=== PATIENT | female | born 1990 | race Caucasian/White ===

== ENCOUNTER → 2017-05-18 | Outpatient (CLI) | payer OTHER ==
--- NOTE | 2017-05-18 15:27 | US ---
EXAMINATION TYPE: US venous doppler duplex UE DATE OF EXAM: 05/18/2017 COMPARISON: NONE CLINICAL HISTORY: M79.622,M79.621 PAIN IN RT AND LT LIMB. Pain right arm. Heavy feeling bilateral arm s. History of DVT, patient on blood thinner. Patient recently found out she is , started new blood thinner SIDE PERFORMED: bilateral Grayscale, color doppler, spectral doppler imaging performed of the deep veins of the upper extremiti es. There is normal flow, compressability and vascular waveforms. Right Arm: NO evidence of DVT as visualized. Unable to visualize Cephalic vein Left Arm: No evidence of DVT as visualized IMPRESSION: No evidence for upper extremity DVT. See above.
== END | disposition home or self-care (01) ==
LOC: RADUSWWP 12:12
PROVIDERS: ATTEND Internal Medicine Hematology & Oncology
DX: M79.621 Pain in right upper arm (principal); M79.622 Pain in left upper arm; Z86.718 Personal history of other venous thrombosis and embolism
CPT/HCPCS: 93970

== ENCOUNTER 2017-12-20 06:30 | Inpatient (IN) | payer OTHER ==
[2017-12-20] MEDS ORDERED: DINOPROSTONE 10 MG INSERT.ER VAGINAL ONE (18:55)
[2017-12-20 19:01] VITALS: BMI 25.9
[2017-12-20] MEDS ORDERED: OXYTOCIN 10 UNIT/ML 1 ML VIAL IM PRN (19:11)
[2017-12-20] MEDS ORDERED: LIDOCAINE 1% (PF) 10 MG/ML (30 ML SDV) SQ PRN (19:11)
[2017-12-20] MEDS ORDERED: CARBOPROST TROMETHAMINE 250 MCG/ML 1 ML AMP IM PRN (19:11)
[2017-12-20] MEDS ORDERED: TERBUTALINE 1 MG/ML VIAL SQ PRN (19:11)
[2017-12-20] MEDS ORDERED: METHYLERGONOVINE 0.2 MG/ML 1 ML AMP IM PRN (19:11)
--- NOTE | 2017-12-20 19:22 | P.HPOB ---
History of Present Illness H&P Date: 12/20/17 Chief Complaint: IUP @ 390/7, prothrombin gene mutation This is 27yo at 39 0/7 weeks EDC of 12/27/17. she notes an occasional ctx, no LOF or VB bloodwork shows a bloodtype of Review of Systems Constitutional: Denies chills, Denies fatigue, Denies fever Respiratory: Denies dyspnea Gastrointestinal: Denies constipation, Denies diarrhea Genitourinary: Reports Past Medical History Past Medical History: No Reported History Additional Past Medical History / Comment(s): right hand deformity since , atopic dermatitis History of Any Multi-Drug Resistant Organisms: None Reported Additional Past Surgical History / Comment(s): hand surgery Additional Past Anesthesia/Blood Transfusion Reaction / Comment(s): clausterphobia Past Psychological History: Depression Additional Psychological History / Comment(s): dyslexia Smoking Status: Never smoker Past Alcohol Use History: None Reported Past Drug Use History: None Reported - Past Family History Father Family Medical History: Cancer, Hypertension Additional Family Medical History / Comment(s): colon ca Mother Family Medical History: Hypertension, Osteoarthritis (OA) Medications and Allergies Home Medications Medication Instructions Recorded Confirmed Type Enoxaparin [Lovenox] 40 mg SQ BID 12/20/17 12/20/17 History Folic Acid 1 mg PO DAILY 12/20/17 12/20/17 History Pnv No.95/Ferrous Fum/Folic AC 1 tab PO DAILY 12/20/17 12/20/17 History [ Multivitamin Tablet] Allergies Allergy/AdvReac Type Severity Reaction Status Date / Time clorine AdvReac Unknown Uncoded 12/20/17 18:52 detergent AdvReac Unknown Uncoded 12/20/17 18:52 Exam Osteopathic Statement: *. No significant issues noted on an osteopathic structural exam other than those noted in the History and Physical/Consult. - Vital Signs Vital signs: Vital Signs Temp Pulse Resp BP Pulse Ox 12/20/17 18:57 97.1 F L 119 H 16 116/77 100 Intake and Output 12/20/17 12/20/17 12/20/17 06:59 14:59 22:59 Other: Weight 60.328 kg - OBG Physical Exam Abdomen: gravid Cervix: /-3, BBOW, soft Uterus: enlarged Assessment and Plan (1) Term Current Visit: Yes Status: Acute Code(s): Z34.80 - ENCOUNTER FOR SUPRVSN OF NORMAL , UNSP TRIMESTER SNOMED Code(s): 76918917 (2) Prothrombin gene mutation Current Visit: Yes Status: Acute Code(s): D68.52 - PROTHROMBIN GENE MUTATION SNOMED Code(s): 24242597 Plan: admit to labor and delivery for cervidil induction secondary to the above. last lovenox 2230 last evening undecided about the epidural. will order stadol overnight Time with Patient: Less than 30
[2017-12-20] MEDS ORDERED: AMPICILLIN 2,000 MG in SODIUM CHLORIDE 0.9% 100 ML IVPB STA (19:24)
[2017-12-21] MEDS: OXYTOCIN 20 UNITS/1000 ML NS 1,000 ML IV SCH (06:00)
[2017-12-21] MEDS: LACTATED RINGERS 1,000 ML IV SCH ×4 (06:00→20:14)
[2017-12-21 06:14] LABS: Basophils # (A) 0.1 k/uL (0-0.2); Basophils % (A) 1 %; Eosinophils # (A) 0.3 k/uL (0-0.7); Eosinophils % (A) 2 %; HCT 28.7 % (34.0-46.0); HGB 9.1 gm/dL (11.4-16.0); Hypochromasia Marked; Lymphocytes # (A) 2.4 k/uL (1.0-4.8); Lymphocytes % (A) 21 %; MCH 22.3 pg (25.0-35.0); MCHC 31.8 g/dL (31.0-37.0); MCV 70.2 fL (80.0-100.0); Mean Platelet Volume 7.3; Microcytosis Moderate; Monocytes # (A) 0.4 k/uL (0-1.0); Monocytes % (A) 4 %; Neutrophils # (A) 8.4 k/uL (1.3-7.7); Neutrophils % (A) 71 %; Platelet Count 314 k/uL (150-450); Poikilocytosis Moderate; RBC 4.09 m/uL (3.80-5.40); RDW 14.9 % (11.5-15.5); WBC 11.7 k/uL (3.8-10.6)
[2017-12-21] MEDS: AMPICILLIN 1,000 MG in SODIUM CHLORIDE 0.9% 50 ML IVPB SCH ×5 (10:11→21:36)
[2017-12-21] MEDS ORDERED: BUTORPHANOL 1 MG/ML 1 ML VIAL IV PRN (10:50)
[2017-12-21 11:49] LABS: INR 0.9 (<1.2); Prothrombin Time 9.3 sec (9.0-12.0)
[2017-12-21 11:59] LABS: Partial Thromboplastin Time 20.6 sec (22.0-30.0)
[2017-12-21] MEDS ORDERED: SODIUM CHLORIDE 0.9% 100 ML BAG ONE (14:55)
[2017-12-21] MEDS ORDERED: fentaNYL (PF) 50 MCG/ML 5 ML AMP ONE (14:55)
[2017-12-21] MEDS ORDERED: BUPIVACAINE (PF) 0.25% 30 ML VIAL ONE (14:55)
[2017-12-21] MEDS ORDERED: BUPIVACAINE (PF) 0.25% 25 ML, fentaNYL (PF) 200 MCG in SODIUM CHLORIDE 0.9% 71 ML EPIDURAL ONE (18:41)
[2017-12-21] MEDS ORDERED: WITCH HAZEL 1 EACH MED..PAD TOPICAL PRN (18:59)
[2017-12-21] MEDS ORDERED: ZOLPIDEM 5 MG TAB PO PRN (18:59)
[2017-12-21] MEDS ORDERED: HYDROCORTISONE 2.5% RECTAL CREAM 30 GM TUBE RECTAL PRN (18:59)
[2017-12-21] MEDS ORDERED: diphenhydrAMINE 25 MG CAP PO PRN (18:59)
[2017-12-21] MEDS ORDERED: diphenhydrAMINE 50 MG/ML 1 ML VIAL IVP PRN ×2 (18:59)
[2017-12-21] MEDS ORDERED: LANOLIN CREAM 5 GM TUBE TOPICAL PRN (18:59)
[2017-12-21] MEDS ORDERED: BENZOCAINE/MENTHOL SPRAY 1 GM/SPRAY AEROSOL TOPICAL PRN (18:59)
[2017-12-21] MEDS ORDERED: diphenhydrAMINE 50 MG CAP PO PRN (18:59)
[2017-12-21] MEDS ORDERED: SIMETHICONE 80 MG CHEWABLE PO PRN (18:59)
[2017-12-21] MEDS ORDERED: ACETAMINOPHEN TAB 325 MG TAB PO PRN (18:59)
--- NOTE | 2017-12-21 18:59 | P.PROBDLV ---
Vaginal Delivery Note - . Vaginal Delivery Note: This is a very pleasant 27-year-old 1 para 0 at 39 and one sevenths weeks that presents for Cervidil induction of labor secondary to prothrombin gene mutation, and large for gestational age. Patient was admitted on 328 for Cervidil induction of labor. Patient made slow progress but good contractions over the evening, in the morning Pitocin augmentation of labor was begun. She made progress to 1-2 cm amniotomy was performed and clear fluid was obtained. She eventually received an epidural for analgesia progressed to complete and began pushing next Patient was noted to be head was delivered without difficulty anterior shoulder by slight downward traction followed by upward traction for the posterior shoulder. The 's body was then delivered without difficulty and the infant was placed on the maternal abdomen. A spontaneous cry was noted. The cord was then doubly clamped and cut after a delayed cord clamp was obtained. The placenta was then delivered intact spontaneously with a three-vessel cord being noted. Afterwards inspection of the patient's vaginal vault revealed a first-degree vaginal laceration along with a left labial laceration. These were both repaired in the usual fashion with 4-0 chromic. On further inspection after the repair everything was hemostatic no further lacerations were noted. The uterus was firm and below the umbilicus at this time. Estimated blood loss was approximately 300 mL. Delivery time of infant male at 1834, weight of 8 lbs. 5 oz., Apgars of 8 and 9 at one and 5 minutes respectively.
[2017-12-21] MEDS ORDERED: OXYTOCIN 20 UNITS/1000 ML NS 1,000 ML IV SCH (19:00)
[2017-12-21] MEDS: IBUPROFEN 600 MG TAB PO PRN (19:54)
[2017-12-21] MEDS: PRENATAL VIT-IRON-FOLIC ACID 1 EACH CAP PO SCH (20:13)
[2017-12-21] MEDS: SENNOSIDES-DOCUSATE SODIUM 1 EACH TAB PO SCH (21:44)
[2017-12-22] MEDS: OXYTOCIN 20 UNITS/1000 ML NS 1,000 ML IV SCH (04:27)
[2017-12-22] MEDS: ENOXAPARIN 40 MG/0.4 ML SYRINGE SQ SCH ×2 (06:45→09:00)
[2017-12-22 08:21] VITALS: RESP 18
--- NOTE | 2017-12-22 08:42 | P.DS ---
Providers Date of admission: 12/20/17 18:38 Expected date of discharge: 12/22/17 Attending physician: Noemi Holbrook Primary care physician: Stated None - Discharge Diagnosis(es) (1) Term Current Visit: Yes Status: Acute (2) Prothrombin gene mutation Current Visit: Yes Status: Acute Hospital Course: This very pleasant 27-year-old 1 para 0 presented for Cervidil induction of labor on Monday evening. Patient progressed through labor in the morning Pitocin augmentation of labor was started and amniotomy was performed she progressed to complete and had a normal spontaneous vaginal delivery of a viable male infant at 1834, weight 8 lbs. 5 oz. Apgars of 8 and 10 at one and 5 minutes or sexually. External patient's course has been uneventful. She is ambulating and voiding without difficulty, lochia is moderate, she is tolerating regular diet without nausea or vomiting. She is feeling well and wishes to be discharged home Plan - Discharge Summary Discharge Rx Participant: No New Discharge Prescriptions: No Action Enoxaparin [Lovenox] 40 mg SQ BID Folic Acid 1 mg PO DAILY Pnv No.95/Ferrous Fum/Folic AC [ Multivitamin Tablet] 1 tab PO DAILY Discharge Medication List Enoxaparin [Lovenox] 40 mg SQ BID 12/20/17 [History] Folic Acid 1 mg PO DAILY 12/20/17 [History] Pnv No.95/Ferrous Fum/Folic AC [ Multivitamin Tablet] 1 tab PO DAILY [History] Follow up Appointment(s)/Referral(s): Noemi Holbrook DO [Doctor of Osteopathic Medicine] - 4 Weeks
[2017-12-22] MEDS: SENNOSIDES-DOCUSATE SODIUM 1 EACH TAB PO SCH (08:56)
[2017-12-22] MEDS: PRENATAL VIT-IRON-FOLIC ACID 1 EACH CAP PO SCH (08:57)
[2017-12-22 08:59] LABS: Basophils % (A) 0 %; Eosinophils # (A) 0.2 k/uL (0-0.7); Eosinophils % (A) 1 %; HCT 24.8 % (34.0-46.0); HGB 7.7 gm/dL (11.4-16.0); Hypochromasia Marked; Lymphocytes # (A) 2.2 k/uL (1.0-4.8); Lymphocytes % (A) 14 %; MCH 21.7 pg (25.0-35.0); MCHC 30.9 g/dL (31.0-37.0); MCV 70.1 fL (80.0-100.0); Mean Platelet Volume 7.8; Microcytosis Moderate; Monocytes # (A) 0.6 k/uL (0-1.0); Monocytes % (A) 4 %; Neutrophils % (A) 80 %; Platelet Count 256 k/uL (150-450); Poikilocytosis Moderate; RBC 3.54 m/uL (3.80-5.40); WBC 16.2 k/uL (3.8-10.6)
[2017-12-22] MEDS: IBUPROFEN 600 MG TAB PO PRN (09:03)
[2017-12-22 15:29] VITALS: BP 108/75; PULSE 87; TEMP 98.6
== END 2017-12-22 20:00 | disposition home or self-care (01) | DRG 775 ==
LOC: 4FBP 18:38
PROVIDERS: ADMIT Obstetrics & Gynecology Obstetrics; ATTEND Obstetrics & Gynecology Obstetrics
PROC: 10E0XZZ Delivery of Products of Conception, External Approach (ICD-10-PCS; principal; 2017-12-21)
PROC: 0HQ9XZZ Repair Perineum Skin, External Approach (ICD-10-PCS; 2017-12-21)
PROC: 00HU33Z Insertion of Infusion Device into Spinal Canal, Percutaneous Approach (ICD-10-PCS; 2017-12-21)
PROC: 3E0R3NZ Introduction of Analgesics, Hypnotics, Sedatives into Spinal Canal, Percutaneous Approach (ICD-10-PCS; 2017-12-21)
PROC: 10907ZC Drainage of Amniotic Fluid, Therapeutic from Products of Conception, Via Natural or Artificial Opening (ICD-10-PCS; 2017-12-21)
PROC: 3E0P7VZ Introduction of Hormone into Female Reproductive, Via Natural or Artificial Opening (ICD-10-PCS; 2017-12-21)
DX: O36.63X0 Maternal care for excessive fetal growth, third trimester, not applicable or unspecified (principal); D68.52 Prothrombin gene mutation; O99.12 Other diseases of the blood and blood-forming organs and certain disorders involving the immune mechanism complicating childbirth; O99.344 Other mental disorders complicating childbirth; Q68.1 Congenital deformity of finger(s) and hand; O99.824 Streptococcus B carrier state complicating childbirth; O70.0 First degree perineal laceration during delivery; R48.0 Dyslexia and alexia; Z82.49 Family history of ischemic heart disease and other diseases of the circulatory system; Z80.0 Family history of malignant neoplasm of digestive organs; Z79.899 Other long term (current) drug therapy; Z79.02 Long term (current) use of antithrombotics/antiplatelets; Z3A.39 39 weeks gestation of pregnancy; Z37.0 Single live birth; Z88.8 Allergy status to other drugs, medicaments and biological substances; Z91.048 Other nonmedicinal substance allergy status; Z86.59 Personal history of other mental and behavioral disorders; Z87.2 Personal history of diseases of the skin and subcutaneous tissue; Z86.718 Personal history of other venous thrombosis and embolism
CPT/HCPCS: 85025; 85610; 85730; 88307

== ENCOUNTER 2019-03-14 17:47 | Inpatient (IN) | payer OTHER ==
--- NOTE | 2019-03-14 19:58 | ED ---
Extremity Problem HPI - General Chief complaint: Extremity Problem,Nontraumatic Stated complaint: rt arm pain Time Seen by Provider: 03/14/19 18:02 Source: patient Mode of arrival: ambulatory Limitations: no limitations - History of Present Illness Initial comments: Patient is a 29-year-old female with a history of hypercoagulable hereditary disease is presenting to the emergency department with right arm discomfort. Patient reports the discomfort is more of a dull ache with tingling radiating from the elbow distally to midforearm and proximally to mid humerus. 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 Patient reports 2 DVTs in the right arm region and reports similar sensation. Patient currently reports that her right arm feels "heavy" but denies muscle weakness. Patient reports that she is currently on aspirin for her hypercoagulable condition. Patient denies shortness of breath, coughing, chest pain, chest tightness or hemoptysis. - Related Data Home Medications Medication Instructions Recorded Confirmed Aspirin EC [Ecotrin Low Dose] 81 mg PO DAILY 03/14/19 03/14/19 Allergies Allergy/AdvReac Type Severity Reaction Status Date / Time warfarin [From Coumadin] AdvReac DIZZINESS Verified 03/14/19 21:16 clorine AdvReac Unknown Uncoded 03/14/19 21:16 detergent AdvReac Unknown Uncoded 03/14/19 21:16 Review of Systems ROS Statement: Those systems with pertinent positive or pertinent negative responses have been documented in the HPI. ROS Other: All systems not noted in ROS Statement are negative. Past Medical History Past Medical History: No Reported History Additional Past Medical History / Comment(s): right hand deformity since , atopic dermatitis. BLOOD CLOTTING DISORDER History of Any Multi-Drug Resistant Organisms: None Reported Additional Past Surgical History / Comment(s): hand surgery Additional Past Anesthesia/Blood Transfusion Reaction / Comment(s): clausterphobia Past Psychological History: Depression Smoking Status: Never smoker Past Alcohol Use History: None Reported Past Drug Use History: None Reported - Past Family History Father Family Medical History: Cancer, Hypertension Additional Family Medical History / Comment(s): colon ca Mother Family Medical History: Hypertension, Osteoarthritis (OA) General Exam Limitations: no limitations General appearance: alert, in no apparent distress Head exam: Present: atraumatic, normocephalic, normal inspection Eye exam: Present: normal appearance, PERRL, EOMI Pupils: Present: normal accommodation ENT exam: Present: normal exam, mucous membranes moist Neck exam: Present: normal inspection Respiratory exam: Present: normal lung sounds bilaterally. Absent: respiratory distress, wheezes Cardiovascular Exam: Present: regular rate, normal rhythm, normal heart sounds Extremities exam: Present: normal inspection, full ROM, normal capillary refill, other (+2 ulnar and radial pulses, bilaterally. Equal pulses bilaterally. Normal capillary refill bilaterally on upper extremities. Mild discomfort with a tingly sensation starting around midhumerus and moving distally to mid forearm. Equal muscle strength bilaterally.) Back exam: Present: normal inspection, full ROM Neurological exam: Present: alert, oriented X3 Psychiatric exam: Present: normal affect, normal mood Skin exam: Present: warm, intact, normal color Course Vital Signs 03/14/19 03/14/19 03/15/19 17:50 21:56 00:43 Temperature 98.3 F 98 F Pulse Rate 90 88 67 Respiratory 16 16 19 Rate Blood Pressure 124/75 126/84 101/66 O2 Sat by Pulse 100 96 100 Oximetry Medical Decision Making - Medical Decision Making Patient is a 29-year-old female presents emergency Department with right arm discomfort. Duplex Ultrasound of the right upper extremity was obtained. Imaging was negative for a DVT but the cephalic vein could not be visualized. This a DVT could not be fully ruled out. Patient will be admitted for observation and treatment. Patient was anticoagulated using high intensity heparin. The admitting physician is Dr. Hendricks with Dr. Brandt on consult. Case discussed with Dr. Graves who is in agreement with the treatment plan. - Lab Data Result diagrams: 03/14/19 21:40 Lab Results 03/14/19 03/14/19 Range/Units 21:40 21:40 WBC 5.9 (3.8-10.6) k/uL RBC 5.01 (3.80-5.40) m/uL Hgb 13.5 (11.4-16.0) gm/dL Hct 40.4 (34.0-46.0) % MCV 80.7 (80.0-100.0) fL MCH 26.9 (25.0-35.0) pg MCHC 33.3 (31.0-37.0) g/dL RDW 14.4 (11.5-15.5) % Plt Count 259 (150-450) k/uL Neutrophils % 45 % Lymphocytes % 46 % Monocytes % 4 % Eosinophils % 3 % Basophils % 0 % Neutrophils # 2.6 (1.3-7.7) k/uL Lymphocytes # 2.7 (1.0-4.8) k/uL Monocytes # 0.2 (0-1.0) k/uL Eosinophils # 0.2 (0-0.7) k/uL Basophils # 0.0 (0-0.2) k/uL PT 11.0 (9.0-12.0) sec INR 1.0 (<1.2) APTT 22.9 (22.0-30.0) sec Disposition Clinical Impression: Arm pain, right, DVT (deep venous thrombosis) Disposition: ADMITTED IP TO THIS HOSP Condition: Stable Instructions (If sedation given, give patient instructions): Deep Vein Thrombosis (DC) Additional Instructions: Patient will be admitted for inpatient care. Is patient prescribed a controlled substance at d/c from ED?: No Referrals: Praneeth Villalobos MD [Primary Care Provider] - 1-2 days Time of Disposition: 02:06
--- NOTE | 2019-03-14 20:06 | US ---
EXAMINATION TYPE: US venous doppler duplex UE RT DATE OF EXAM: 03/14/2019 COMPARISON: US CLINICAL HISTORY: Right arm numbness and pain. Right arm numbness, tingling, and pain x 2 hours. Pt t akes baby aspirin. Hx blood clot. Pt unsure what type of blood clotting disorder she has. SIDE PERFORMED: Right Right Arm: Limited study. Cephalic vein not seen. Only one brachial vein definitely seen compressing and showing color flow. Cannot rule out DVT in second unseen brachial vein. IMPRESSION: . There is patency of the jugular and subclavian and axillary and brachial vein. There is no evidence of deep venous thrombosis.
[2019-03-14] MEDS ORDERED: NITROGLYCERIN SL TABS 0.4 MG TAB SUBLINGUAL PRN (20:33)
[2019-03-14] MEDS ORDERED: NALOXONE 0.4 MG/ML 1 ML VIAL IV PRN (20:40)
[2019-03-14] MEDS ORDERED: HEPARIN SODIUM,PORCINE 5,000 UNIT/ML 1 ML VIAL IV PRN (20:49)
[2019-03-14] MEDS ORDERED: HEPARIN SODIUM,PORCINE 10,000 UNIT/ML 1 ML VIAL IV ONE (20:49)
[2019-03-14 21:48] LABS: Basophils % (A) 0 %; Eosinophils # (A) 0.2 k/uL (0-0.7); Eosinophils % (A) 3 %; HCT 40.4 % (34.0-46.0); HGB 13.5 gm/dL (11.4-16.0); Lymphocytes # (A) 2.7 k/uL (1.0-4.8); Lymphocytes % (A) 46 %; MCH 26.9 pg (25.0-35.0); MCHC 33.3 g/dL (31.0-37.0); MCV 80.7 fL (80.0-100.0); Mean Platelet Volume 7.6; Monocytes # (A) 0.2 k/uL (0-1.0); Monocytes % (A) 4 %; Neutrophils # (A) 2.6 k/uL (1.3-7.7); Neutrophils % (A) 45 %; Platelet Count 259 k/uL (150-450); RBC 5.01 m/uL (3.80-5.40); RDW 14.4 % (11.5-15.5); WBC 5.9 k/uL (3.8-10.6)
[2019-03-14] MEDS: HEPARIN SOD,PORK IN 0.45% NACL 25,000 UNIT in 0.45% NACL 1 250ML.BAG IV SCH (22:01)
[2019-03-14 22:14] LABS: Partial Thromboplastin Time 22.9 sec (22.0-30.0)
[2019-03-15] MEDS ORDERED: NITROGLYCERIN OINT 1 INCH/GM PACKET TOPICAL SCH
[2019-03-15 03:49] LABS: Basophils % (A) 1 %; Eosinophils # (A) 0.4 k/uL (0-0.7); Eosinophils % (A) 5 %; HCT 37.9 % (34.0-46.0); HGB 12.5 gm/dL (11.4-16.0); Lymphocytes # (A) 3.9 k/uL (1.0-4.8); Lymphocytes % (A) 55 %; MCH 26.9 pg (25.0-35.0); MCV 81.5 fL (80.0-100.0); Mean Platelet Volume 7.3; Monocytes # (A) 0.3 k/uL (0-1.0); Monocytes % (A) 4 %; Neutrophils # (A) 2.4 k/uL (1.3-7.7); Neutrophils % (A) 34 %; Platelet Count 244 k/uL (150-450); RBC 4.65 m/uL (3.80-5.40); RDW 14.4 % (11.5-15.5); WBC 7.1 k/uL (3.8-10.6)
[2019-03-15 03:57] VITALS: BMI 22.2
[2019-03-15] MEDS ORDERED: ASPIRIN 325 MG TAB PO SCH (09:00)
--- NOTE | 2019-03-15 10:53 | P.CRDCN ---
History of Present Illness History of present illness: This is a pleasant 29-year-old female with past medical history significant for some type of clotting disorder unknown type per the patient she follows with Dr. Martinez, she also has had DVT in the right arm and right jugular vein in the past. Currently maintained on aspirin 81 mg daily. She presented to the hospital last evening with symptoms of right arm discomfort, tingling and heaviness. She states this started after finishing work yesterday where she works at a rather physical job and initially she thought she may have just strained her arm at work. As the night progressed his symptoms progressed with no alleviating factors. Her symptoms felt similar to how she felt in 2015 when she had a blood clot in that arm. For that reason she presented to the hospital for further evaluation. Doppler of the right arm reveals patency of the jugular and subclavian and axillary and brachial veins with no evidence of DVT however one only 1 brachial vein was seen therefore cannot rule out DVT and the second on same brachial vein. Therefore she has been started on anticoagulation with a consultation to vascular surgery. EKG obtained reveals sinus mechanism with T- wave inversions in precordial anterior leads. There is no old EKG for comparison. She states she doesn't believe she has ever had an EKG done in the past. For this reason we have been asked to see the patient in consultation. She is seen and examined resting comfortably in bed in no acute distress. She denies ever having had any symptoms of chest discomfort, shortness of breath, palpitations, nausea, vomiting, diaphoresis or dizziness. There is no symptoms to suggest unstable angina. Laboratory data reviewed, WBC 7.1, hemoglobin 12.5, platelets 244. At the time of my exam: CONSTITUTIONAL: Denies fever. Denies chills. EYES: Denies blurred vision. Denies vision changes. Denies eye pain. EARS, NOSE, MOUTH & THROAT: Denies headache. Denies sore throat. Denies ear pain. CARDIOVASCULAR: Denies chest pain. Denies shortness of breath. Denies orthopnea. Denies PND. Denies palpitations. RESPIRATORY: Denies cough. GASTROINTESTINAL: Denies abdominal pain. Denies diarrhea. Denies constipation. Denies nausea. Denies vomiting. MUSCULOSKELETAL: Denies myalgias. INTEGUMENTARY: Denies pruitis. Denies rash. NEUROLOGIC: Denies numbness. Denies tingling. Denies weakness. PSYCHIATRIC: Denies anxiety. Denies depression. ENDOCRINE: Denies fatigue. Denies weight change. Denies polydipsia. Denies polyurina. GENITOURINARY: Denies burning, hematuria or urgency with micturation. HEMATOLOGIC: Denies history of anemia. Denies bleeding. Blood pressure 97/62 heart rate 84 afebrile maintaining oxygen saturation on room air GENERAL: This is a 29-year-old female in no apparent distress at the time of my examination. HEENT: Head is atraumatic, normocephalic. Pupils are equal, round. Sclerae anict naeem. Conjunctivae are clear. Mucous membranes of the mouth are moist. Neck is supple. There is no jugular venous distention. No carotid bruit is heard. LUNGS: Clear to auscultation no wheezes, rales or rhonchi. No chest wall tenderness is noted on palpation or with deep breathing. HEART: Regular rate and rhythm without murmurs, rubs or gallops. S1 and S2 heard. ABDOMEN: Soft, nontender. Bowel sounds are heard. No organomegaly noted. EXTREMITIES: No evidence of peripheral edema and no calf tenderness noted. 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 VASCULAR: Radial and dorsalis pedis pulses palpated, no evidence of clubbing. NEUROLOGIC: Patient is awake, alert and oriented x3. ASSESSMENT Right arm discomfort similar to previous DVT in the arm 2014, no doppler evidence of DVT. Baseline EKG abnormalities, no old for comparison. Could be a normal variant for this young healthy female. History of DVT in right arm and jugular vein with stated history of clotting disorder per the patient discovered by Dr. Martinez after her DVT PLAN No symptoms of angina to explain EKG abnormalities, likely is a normal variant for her. Obtain 2D echocardiogram and doppler study to assess cardiac structure and function. If echo is normal she is stable from a cardiac perspective. Ongoing medical management. Thank you kindly for this consultation. Nurse Practitioner note has been reviewed, I agree with a documented findings and plan of care. Patient was seen and examined. Past Medical History Past Medical History: No Reported History Additional Past Medical History / Comment(s): right hand deformity since , atopic dermatitis. BLOOD CLOTTING DISORDER History of Any Multi-Drug Resistant Organisms: None Reported Additional Past Surgical History / Comment(s): hand surgery Additional Past Anesthesia/Blood Transfusion Reaction / Comment(s): clausterphobia Past Psychological History: Depression Additional Psychological History / Comment(s): dyslexia Smoking Status: Never smoker Past Alcohol Use History: None Reported Past Drug Use History: None Reported - Past Family History Father Family Medical History: Cancer, Hypertension Additional Family Medical History / Comment(s): colon ca Mother Family Medical History: Hypertension, Osteoarthritis (OA) Medications and Allergies Home Medications Medication Instructions Recorded Confirmed Type Aspirin EC [Ecotrin Low Dose] 81 mg PO DAILY 03/14/19 03/14/19 History Allergies Allergy/AdvReac Type Severity Reaction Status Date / Time warfarin [From Coumadin] AdvReac DIZZINESS Verified 03/14/19 21:16 clorine AdvReac Unknown Uncoded 03/14/19 21:16 detergent AdvReac Unknown Uncoded 03/14/19 21:16 Physical Exam Vitals: Vital Signs Temp Pulse Pulse Resp BP BP Pulse Ox 03/15/19 03:52 98.0 F 77 14 104/72 99 03/15/19 03:17 97.9 F 65 18 110/70 100 03/15/19 00:43 98 F 67 19 101/66 100 03/14/19 21:56 88 16 126/84 96 03/14/19 17:50 98.3 F 90 16 124/75 100 Intake and Output 03/14/19 03/15/19 03/15/19 22:59 06:59 14:59 Intake Total 157.029 50 Balance 157.029 50 Intake: Intake, IV Titration 57.029 Amount Heparin Sod,Pork in 0.45% 57.029 NaCl 25,000 unit In 0.45 % NaCl 1 250ml.bag @ 18 UNITS/KG/HR 8.981 mls/hr IV .Q24H [facility] Rx#: [id number] Oral 100 50 Other: Voiding Method Toilet # Voids 1 Weight 49.895 kg 48.4 kg Results 03/15/19 03:24 Coagulation 03/14/19 03/15/19 Range/Units 21:40 03:24 PT 11.0 (9.0-12.0) sec APTT 22.9 138.5 H* (22.0-30.0) sec CBC 03/14/19 03/15/19 Range/Units 21:40 03:24 WBC 5.9 7.1 (3.8-10.6) k/uL RBC 5.01 4.65 (3.80-5.40) m/uL Hgb 13.5 12.5 (11.4-16.0) gm/dL Hct 40.4 37.9 (34.0-46.0) % Plt Count 259 244 (150-450) k/uL Current Medications Generic Name Dose Route Start Last Admin Trade Name Freq PRN Reason Stop Dose Admin Heparin Sodium (Porcine) 0 unit 03/14/19 20:49 Heparin IV PER PROTOCOL PRN Low PTT Protocol Heparin Sodium/Sodium Chloride 250 mls @ 8.981 mls/hr 03/14/19 21:00 03/15/19 05:22 25,000 unit/ Sodium Chloride IV 15 units/kg/hr .Q24H JONATHAN 7.484 mls/hr Titration Protocol 18 UNITS/KG/HR Naloxone HCl 0.2 mg 03/14/19 20:40 Narcan IV Q2M PRN Opioid Reversal Intake and Output 03/14/19 03/15/19 03/15/19 22:59 06:59 14:59 Intake Total 157.029 50 Balance 157.029 50 Intake: Intake, IV Titration 57.029 Amount Heparin Sod,Pork in 0.45% 57.029 NaCl 25,000 unit In 0.45 % NaCl 1 250ml.bag @ 18 UNITS/KG/HR 8.981 mls/hr IV .Q24H [facility] Rx#: [id number] Oral 100 50 Other: Voiding Method Toilet # Voids 1 Weight 49.895 kg 48.4 kg 03/15/19 03:24
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
--- NOTE | 2019-03-15 18:34 | ECHOF ---
Referral Reason:abn ekg MEASUREMENTS -------- HEIGHT: 149.9 cm WEIGHT: 48.1 kg BP: 104/72 IVSd: 0.8 cm (0.6 - 1.1) LVIDd: 4.2 cm (3.9 - 5.3) LVPWd: 0.8 cm (0.6 - 1.1) IVSs: 1.0 cm LVIDs: 2.9 cm LVPWs: 1.0 cm LA Diam: 2.1 cm (2.7 - 3.8) LAESV Index (A-L): 13.22 ml/m MV E Juan Jose: 1.05 m/s MV DecT: 148 ms MV A Juan Jose: 0.53 m/s MV E/A Ratio: 1.96 AV maxP.49 mmHg AV meanP.61 mmHg FINDINGS -------- Sinus rhythm. This was a technically good study. LV size, wall thickness and systolic function are normal, with an EF greater than 55%. The right ventricle is normal in size. The left atrium is normal in size. The right atrial size is normal. The aortic valve is trileaflet, and appears structurally normal. No aortic stenosis or regurgitation. Normal appearing mitral valve. The tricuspid valve appears structurally normal. There is no pulmonic regurgitation present. The aortic root, ascending aorta and aortic arch are normal. Normal inferior vena cava with normal inspiratory collapse consistent with estimated right atrial pre ssure of 5 mmHg. Echo free space represents a pericardial fat pad. CONCLUSIONS -------- 1. Sinus rhythm. 2. This was a technically good study. 3. LV size, wall thickness and systolic function are normal, with an EF greater than 55%. 4. The left atrium is normal in size. 5. The aortic valve is trileaflet, and appears structurally normal. No aortic stenosis or regurgitati on. 6. Normal appearing mitral valve. 7. The tricuspid valve appears structurally normal. 8. There is no pulmonic regurgitation present. 9. The aortic root, ascending aorta and aortic arch are normal. 10. Normal inferior vena cava with normal inspiratory collapse consistent with estimated right atrial pressure of 5 mmHg. 11. Echo free space represents a pericardial fat pad. GENERAL II FARMWORKER: Yvette Osullivan [facility]
--- NOTE | 2019-03-15 18:59 | CT ---
EXAMINATION TYPE: CT angio chest DATE OF EXAM: 03/15/2019 6:46 PM COMPARISON: 11/29/2014 HISTORY: Chest pain. History of DVT. CT DLP: 173.3 mGycm Automated exposure control for dose reduction was used. CONTRAST: CTA scan of the thorax is performed with IV Contrast, patient injected with 60ml mL of Isovue 370, pu lmonary embolism protocol. . There are 3-D post processed images. FINDINGS: The lungs are clear of consolidation. There is no evidence of a pulmonary mass. There is no pleural e ffusion. Heart size is normal. There is no pericardial effusion. There is no mediastinal adenopathy. There are no hilar masses. Heart size is normal. There is normal contrast opacification of the pulmonary arteries. There are no filling defects. Thora cic aorta appears normal without evidence of aneurysm or dissection. Thoracic spine is intact. Ribs appear intact. Upper abdominal soft tissues are intact. IMPRESSION: NEGATIVE EXAM. NO EVIDENCE OF PULMONARY EMBOLISM.
--- NOTE | 2019-03-15 20:56 | P.HPIM ---
History of Present Illness H&P Date: 03/15/19 Chief Complaint: Heaviness in the right arm History of present complaint: This is a pleasant [address] rodriguez. Chronic stable medical conditions include claustrophobia, dyslexia, atopic dermatitis,. 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 Martinez today and which is not considered a hypercoagulable state anymore. Patient had to the DVT in the right upper extremity about 2 years ago that was treated with 3 months of anticoagulation and then she was put on aspirin. A Dr. Martinez patient had 2 or 3 presentation with heaviness the right upper extremity but no DVT has been found again. This occasion patient presents with heaviness in the right upper arm and some tingling. For one day. No fever or chills. No pain. There is no swelling of the right arm. Patient's was placed on IV heparin in the ER. Ultrasound was done. In the ER right brachial vein could not be visualized. No swelling of the right arm. Review of systems: GEN.: None EYES: None HEENT: None NECK: None RESPIRATORY: None CARDIOVASCULAR: None GASTROINTESTINAL: None GENITOURINARY: None MUSCULOSKELETAL: None LYMPHATICS: None HEMATOLOGICAL: None PSYCHIATRY: As above NEUROLOGICAL: As above Physical examination: VITAL SIGNS: 98.3, 90, 16, 124/75, 100% room air GENERAL: Average built, sitting up, comfortable. EYES: Pupils equal. Conjunctiva normal. HEENT: External appearance of nose and ears normal, oral cavity grossly normal. NECK: JVD not raised; masses not palpable. HEART: First and second heart sounds are normal; no edema. LUNGS: Respiratory rate normal; clear to auscultation. ABDOMEN: Soft, nontender, liver spleen not palpable, no masses palpable. LYMPHATICS: No lymph nodes palpable in the axilla and neck. PSYCH: Alert and oriented x3; mood and affect normal. NEUROLOGICAL: Cranial nerves grossly intact; no facial asymmetry, power and sensation grossly intact EXTREMITIES: There is no tenderness in the right axilla. No swelling of the right upper extremity compared to left upper extremity. That that is maldevelopment of the right hand with shortened fingers. Investigations reviewed in the clinical context: Doppler ultrasound-shows patency of the jugular and subclavian and axillary in. The brachial vein could not be well-visualized. Assessment: -Possibility of DVT in the brachial vein. This is a patient is at her prior DVT. Subsequently she's had presentations with heaviness in the right upper extremity with no DVT. At this point she has no pain swelling tenderness. Just a heaviness. There is no change in circumference between the right than the left upper extremity. Will get a consultation from vascular and also do a repeat ultrasound. 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 Did discuss a Dr. Martinez. His team will evaluate the patient. In the interim we'll order repeat Doppler ultrasound to visualize the brachial vein. Awaiting input from vascular. Care was discussed with the mother at the bedside. Home medications were resumed. Past Medical History Past Medical History: No Reported History Additional Past Medical History / Comment(s): right hand deformity since , atopic dermatitis. BLOOD CLOTTING DISORDER History of Any Multi-Drug Resistant Organisms: None Reported Additional Past Surgical History / Comment(s): hand surgery Additional Past Anesthesia/Blood Transfusion Reaction / Comment(s): clausterphobia Past Psychological History: Depression Additional Psychological History / Comment(s): dyslexia Smoking Status: Never smoker Past Alcohol Use History: None Reported Past Drug Use History: None Reported - Past Family History Father Family Medical History: Cancer, Hypertension Additional Family Medical History / Comment(s): colon ca Mother Family Medical History: Hypertension, Osteoarthritis (OA) Medications and Allergies Home Medications Medication Instructions Recorded Confirmed Type Aspirin EC [Ecotrin Low Dose] 81 mg PO DAILY 03/14/19 03/14/19 History Allergies Allergy/AdvReac Type Severity Reaction Status Date / Time warfarin [From Coumadin] AdvReac DIZZINESS Verified 03/14/19 21:16 clorine AdvReac Unknown Uncoded 03/14/19 21:16 detergent AdvReac Unknown Uncoded 03/14/19 21:16 Physical Exam Vitals: Vital Signs Temp Pulse Pulse Resp BP BP Pulse Ox 03/15/19 20:15 16 03/15/19 19:27 98.3 F 79 18 99/65 99 03/15/19 15:00 98.2 F 84 16 96/72 98 03/15/19 08:45 97.8 F 84 16 97/62 100 03/15/19 03:52 98.0 F 77 14 104/72 99 03/15/19 03:17 97.9 F 65 18 110/70 100 03/15/19 00:43 98 F 67 19 101/66 100 03/14/19 21:56 88 16 126/84 96 Intake and Output 03/15/19 03/15/19 03/15/19 06:59 14:59 22:59 Intake Total 157.029 290 Balance 157.029 290 Intake: Intake, IV Titration 57.029 Amount Heparin Sod,Pork in 0.45% 57.029 NaCl 25,000 unit In 0.45 % NaCl 1 250ml.bag @ 18 UNITS/KG/HR 8.981 mls/hr IV .Q24H [facility] Rx#: [id number] Oral 100 290 Other: Voiding Method Toilet Toilet # Voids 1 1 Weight 48.4 kg Results CBC & Chem 7: 03/15/19 03:24 Labs: Abnormal Lab Results - Last 24 Hours (Table) 03/15/19 03/15/19 Range/Units 03:24 09:02 APTT 138.5 H* 52.7 H (22.0-30.0) sec Thrombosis Risk Factor Assmnt - Choose All That Apply Any of the Below Risk Factors Present?: No Other Risk Factors: Yes Each Risk Factor Represents 3 Points: History of DVT/PE Thrombosis Risk Factor Assessment Total Risk Factor Score: 3 Thrombosis Risk Factor Assessment Level: Moderate Risk
--- NOTE | 2019-03-15 21:46 | CONS ---
CONSULTATION This is a 29-year-old pleasant female. Patient has been admitted with history of discomfort and tingling sensation in the right arm which lasted for a few hours, then resolved completely. The patient's past history includes history of hypercoagulation, disease under care of Dr. Martinez. The patient has been treated in the past with heparin and Xarelto, which has been stopped. The patient was placed on an aspirin a day. PAST HISTORY: Patient was born with some congenital right arm and finger deformities and the patient also has a history of hypercoagulation in the past. PHYSICAL EXAMINATION: Patient was seen in her room, lying comfortably in bed. NECK: Supple. No bruit appreciated. CHEST: Clear to auscultation. First and second sounds normal. ABDOMEN: Soft, nontender. VASCULAR EXAMINATION: Brachial and radial pulses are present. There is no evidence of swelling of the right arm. No localized tenderness noted. Range of motion. The patient had an ultrasound of the right arm. Subclavian axillary and brachial vein patent. No evidence of DVT. The cephalic vein, which is a superficial vein, is not visualized. At this point, clinically and ultrasound findings show no evidence of deep vein involving the brachial, axillary or subclavian vein DVT. If the patient goes home, then we will follow her up in my office in a week's time. The patient has some cardiac issues. Will follow with you at this point. MMSAMEERAL / WILLAM: [id number] /
--- NOTE | 2019-03-16 00:13 | US ---
EXAM: US Duplex Right Upper Extremity Veins CLINICAL HISTORY: ITS.REASON US Reason: dvt in brachial vein TECHNIQUE: Real-time duplex ultrasound scan of the right upper extremity veins integrating B-mode two-dimensional vascular structure, Doppler spectral analysis, color flow Doppler imaging and compression. COMPARISON: No relevant prior studies available. FINDINGS: Deep veins: Unremarkable. No DVT in the internal jugular, subclavian, axillary, or brachial veins. The veins demonstrate normal color flow, are normally compressible, with normal phasic flow and/or augmentation response. Superficial veins: Unremarkable. No thrombus in the visualized basilic and cephalic veins. Soft tissues: No suspicious findings. IMPRESSION: Normal right upper extremity duplex venous ultrasound.
[2019-03-16] MEDS: HEPARIN SOD,PORK IN 0.45% NACL 25,000 UNIT in 0.45% NACL 1 250ML.BAG IV SCH (00:39)
[2019-03-16 07:13] VITALS: BP 93/63; PULSE 86; RESP 15; TEMP 98.4
[2019-03-16 07:50] LABS: Basophils % (A) 1 %; Eosinophils # (A) 0.2 k/uL (0-0.7); Eosinophils % (A) 4 %; HCT 41.4 % (34.0-46.0); HGB 13.6 gm/dL (11.4-16.0); Lymphocytes % (A) 37 %; MCH 27.4 pg (25.0-35.0); MCHC 32.9 g/dL (31.0-37.0); MCV 83.4 fL (80.0-100.0); Mean Platelet Volume 7.5; Monocytes # (A) 0.2 k/uL (0-1.0); Monocytes % (A) 4 %; Neutrophils # (A) 2.8 k/uL (1.3-7.7); Neutrophils % (A) 53 %; Platelet Count 224 k/uL (150-450); RBC 4.97 m/uL (3.80-5.40); RDW 15.5 % (11.5-15.5); WBC 5.3 k/uL (3.8-10.6)
--- NOTE | 2019-03-16 13:06 | P.PN ---
Subjective Progress Note Date: 03/16/19 This is a pleasant 29-year-old female with past medical history significant for some type of clotting disorder unknown type per the patient she follows with Dr. Martinez, she also has had DVT in the right arm and right jugular vein in the past. Currently maintained on aspirin 81 mg daily. She presented to the hospital last evening with symptoms of right arm discomfort, tingling and heaviness. She states this started after finishing work yesterday where she works at a rather physical job and initially she thought she may have just strained her arm at work. As the night progressed his symptoms progressed with no alleviating factors. Her symptoms felt similar to how she felt in 2015 when she had a blood clot in that arm. For that reason she presented to the hospital for further evaluation. Doppler of the right arm reveals patency of the jugular and subclavian and axillary and brachial veins with no evidence of DVT however one only 1 brachial vein was seen therefore cannot rule out DVT and the second on same brachial vein. Therefore she has been started on anticoagulation with a consultation to vascular surgery. EKG obtained reveals sinus mechanism with T- wave inversions in precordial anterior leads. There is no old EKG for comparison. She states she doesn't believe she has ever had an EKG done in the past. For this reason we have been asked to see the patient in consultation. She is seen and examined resting comfortably in bed in no acute distress. She denies ever having had any symptoms of chest discomfort, shortness of breath, palpitations, nausea, vomiting, diaphoresis or dizziness. There is no symptoms to suggest unstable angina. Laboratory data reviewed, WBC 7.1, hemoglobin 12.5, platelets 244. 03/16/2019 Patient was seen and examined this morning, denies any further arm discomfort. Her echo cardiac gram with Doppler study was performed which revealed a normal left ventricular systolic function. Hemodynamically she is stable. Objective - Vital Signs Vital signs: Vital Signs Temp 98.4 F 03/16/19 06:55 Pulse 86 03/16/19 06:55 Resp 15 03/16/19 06:55 BP 93/63 03/16/19 06:55 Pulse Ox 100 03/16/19 06:55 Intake & Output 03/15/19 03/16/19 03/16/19 18:59 06:59 18:59 Intake Total 290 Balance 290 Intake: Oral 290 Other: Voiding Method Toilet Toilet # Voids 1 2 1 - Exam GENERAL: This is a 29-year-old female in no apparent distress at the time of my examination. HEENT: Head is atraumatic, normocephalic. Pupils are equal, round. Sclerae anicteric. Conjunctivae are clear. Mucous membranes of the mouth are moist. Neck is supple. There is no jugular venous distention. No carotid bruit is heard. LUNGS: Clear to auscultation no wheezes, rales or rhonchi. No chest wall tenderness is noted on palpation or with deep breathing. HEART: Regular rate and rhythm without murmurs, rubs or gallops. S1 and S2 heard. ABDOMEN: Soft, nontender. Bowel sounds are heard. No organomegaly noted. EXTREMITIES: No evidence of peripheral edema and no calf tenderness noted. 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 VASCULAR: Radial and dorsalis pedis pulses palpated, no evidence of clubbing. NEUROLOGIC: Patient is awake, alert and oriented x3. - Labs CBC & Chem 7: 03/16/19 07:17 Assessment and Plan Plan: Assessment and plan #1 Right arm discomfort similar to previous DVT in the arm 2014, no doppler evidence of DVT. #2 Baseline EKG abnormalities, no old for comparison. Could be a normal variant for this young healthy female. #3 History of DVT in right arm and jugular vein with stated history of clotting disorder per the patient discovered by Dr. Martinez after her DVT Plan Echo Cardigan with Doppler study revealed a normal left ventricular systolic function. From our perspective, we'll follow this patient with you now on an as-needed basis only, please don't hesitate to call with any questions. DNP note has been reviewed, I agree with a documented findings and plan of care. Patient was seen and examined.
--- NOTE | 2019-03-16 23:36 | P.DS ---
Providers Date of admission: 03/15/19 01:45 Expected date of discharge: 03/16/19 Attending physician: Ugo Hendricks Consults: 03/14/19 20:33 Consult Physician Urgent Consulting Provider: [facility] Consult Reason/Comments: Unstable angina Do you want consulting provider notified?: Yes 03/14/19 20:40 Consult Physician Stat Consulting Provider: Biju Brandt Consult Reason/Comments: dvt Do you want consulting provider notified?: Yes 03/15/19 14:36 Consult Physician Routine Consulting Provider: Naveen Martinez Consult Reason/Comments: poss dvt Do you want consulting provider notified?: Yes Primary care physician: Praneeth Villalobos Hospital Course: Discharge diagnoses: -Acute right arm pain probably musculoskeletal. DVT ruled out. 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 Was treated with 3 months of anticoagulation. Subsequently has been put on aspirin. 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 Discussed the Dr. Martinez. This is not considered a procoagulant state anymore. Patient did have a computed tomography scan of the chest negative for PE. Doppler ultrasound was negative for DVT of the right upper extremity. Did have a 2-D echocardiogram unremarkable. Cleared by all the consultants to go home. Care was discussed with the patient and family. On examination: Right upper extremity no tenderness no swelling compared to left upper extremity Lungs are clear Labs: White count 5.3, hemoglobin 13.6 Disposition: Home Patient Condition at Discharge: Stable Plan - Discharge Summary Discharge Rx Participant: Yes New Discharge Prescriptions: Continue Aspirin EC [Ecotrin Low Dose] 81 mg PO DAILY Discharge Medication List Aspirin EC [Ecotrin Low Dose] 81 mg PO DAILY 03/14/19 [History] Follow up Appointment(s)/Referral(s): Naveen Martinez MD [STAFF PHYSICIAN] - 6 Weeks Suyapa Echevarria MD [STAFF PHYSICIAN] - 2 Weeks Praneeth Villalobos MD [Primary Care Provider] - 1-2 days Patient Instructions/Handouts: Deep Vein Thrombosis (DC) Discharge Disposition: HOME SELF-CARE
== END 2019-03-16 12:00 | disposition home or self-care (01) | DRG 556 ==
LOC: EC 17:47 → UNDOADMOB 20:28 → 4SSUR 20:28 → UNDOADMOB 03-15 01:45 → 4SSUR 03-15 01:45
PROVIDERS: ADMIT Hospitalist; ATTEND Hospitalist
DX: M79.601 Pain in right arm (principal); E72.12 Methylenetetrahydrofolate reductase deficiency; F40.240 Claustrophobia; R48.0 Dyslexia and alexia; L20.9 Atopic dermatitis, unspecified; F32.9 Major depressive disorder, single episode, unspecified; Z86.718 Personal history of other venous thrombosis and embolism; Q74.0 Other congenital malformations of upper limb(s), including shoulder girdle; Z80.0 Family history of malignant neoplasm of digestive organs; Z79.82 Long term (current) use of aspirin; Z82.49 Family history of ischemic heart disease and other diseases of the circulatory system; Z88.8 Allergy status to other drugs, medicaments and biological substances; Z91.048 Other nonmedicinal substance allergy status
CPT/HCPCS: 36415; 71275; 85025; 85379; 85610; 85730; 93005; 93306; 96365; 96366; 96376; 99284

== ENCOUNTER 2023-02-22 22:55 | Outpatient (CLI) | payer BC ==
[2023-02-23 00:29] VITALS: BP 114/74; PULSE 96; RESP 16; TEMP 97.4
--- NOTE | 2023-03-05 15:27 | P.MSEPDOC ---
Presenting Problems - Arrival Data Date of Arrival on Unit: 02/22/23 Time of Arrival on Unit: 22:55 Mode of Transport: Wheelchair - Complaint OB-Reason for Admission/Chief Complaint: Possible Onset of Labor Comment: UC rated 6-10, increased intensity, cx throughout the day. Medical History - Information : 2 Para: 1 Term: 1 : 0 Abortions: Spontaneous or Elective: 0 Number of Living Children: 1 - Gestational Age Gestational Age by TATY (wks/days): 37 Weeks and 4 Days Review of Systems - Review of Systems Constitutional: No problems Breast: No problems ENT: No problems Cardiovascular: No problems Respiratory: No problems Gastrointestinal: No problems Genitourinary: No problems Musculoskeletal: No problems Neurological: No problems Skin: No problems Vital Signs - Temperature Temperature: 97.4 F Temperature Source: Temporal Artery Scan - Pulse Right Pulse Oximetery Pulse Rate: 96 Pulse Assessment Method: Automatic Cuff - Respirations Respiratory Rate: 16 Oxygen Delivery Method: Room Air O2 Sat by Pulse Oximetry: 100 - Blood Pressure Right Arm Blood Pressure: 114/74 Blood Pressure Mean: 87 Blood Pressure Source: Automatic Cuff Medical Screen Scoring - Cervical Exam Dilation (cm): 1.5 Effacement (%): 50 Membranes: Intact - Uterine Contractions Frequency From (mins): 2 Frequency To (mins): 4 Duration From (seconds): 60 Duration To (seconds): 90 Intensity: Moderate Resting: Soft to palpation - Assessment - Baby A Baseline FHR: 120 Heart Rate - NICHD Category: Category I (Normal) NST: Reactive Physician Notification - Physician Notified Physician Notified Date: 02/22/23 Physician Notified Time: 23:01 Physician: Vijaya Strauss - Notification Comment Comment: Dr. Strauss on unit, discussing patients symptoms and cervical exam. 0008- Dr. Strauss updated that no cervical change has been made and patient is comfortable. Orders received to discharge patient home, keep next scheduled appt, and orally hydrate. Maternal Triage Index - Maternal Triage Index Presenting for scheduled procedure w/no complaint: No - Stat/Priority 1 Stat Priority 1: No - Urgent/Priority 2 Urgent Priority 2: No - Prompt/Priority 3 Prompt Priority 3: No - Non-Urgent/Priority 4 Non-Urgent Priority 4: Yes Criteria Met for Priority 4: 37 3/7 contractions Disposition - Disposition OB Disposition: Discharge to home Discharge Date: 02/23/23 Discharge Time: 00:15 I agree with the RN Medical Screening Exam: Yes Case reviewed; plan agreed upon as documented in EMR&OBIX.: Yes Diagnosis: Rule Out labor
== END 2023-02-23 00:15 ==
LOC: FBPOP 22:55
PROVIDERS: ATTEND Obstetrics & Gynecology
DX: Z03.71 Encounter for suspected problem with amniotic cavity and membrane ruled out (principal); Z3A.37 37 weeks gestation of pregnancy; Z88.8 Allergy status to other drugs, medicaments and biological substances; Z91.048 Other nonmedicinal substance allergy status
CPT/HCPCS: 59025; 99213

== ENCOUNTER 2023-03-01 06:00 | Inpatient (IN) | payer BC, OTHER ==
[2023-03-01] MEDS ORDERED: METHYLERGONOVINE 0.2 MG/ML 1 ML AMP IM PRN (06:13)
[2023-03-01] MEDS ORDERED: miSOPROStoL 200 MCG TAB PO PRN (06:13)
[2023-03-01] MEDS ORDERED: TERBUTALINE 1 MG/ML VIAL SQ PRN (06:13)
[2023-03-01] MEDS ORDERED: LIDOCAINE 0.5% (PF) 5 MG/ML (50 ML SDV) SQ PRN (06:13)
[2023-03-01] MEDS ORDERED: CARBOPROST TROMETHAMINE 250 MCG/ML 1 ML AMP IM PRN (06:13)
[2023-03-01] MEDS ORDERED: OXYTOCIN 10 UNIT/ML 1 ML VIAL IM PRN (06:13)
[2023-03-01] MEDS ORDERED: TRANEXAMIC ACID IN NACL,ISO-OS 1,000 MG in EMPTY BAG 1 BAG IV PRN (06:13)
[2023-03-01] MEDS ORDERED: OXYTOCIN 30 UNITS/500 ML NS 30 UNIT in SALINE 1 500ML.BAG IV SCH ×2 (06:15→16:30)
[2023-03-01] MEDS: LACTATED RINGERS 1,000 ML IV SCH ×3 (06:39→16:05)
[2023-03-01 07:28] LABS: Anisocytosis Moderate; Basophils % (A) 0 %; Eosinophils # (A) 0.2 k/uL (0-0.7); Eosinophils % (A) 2 %; HCT 36.8 % (34.0-46.0); HGB 11.8 gm/dL (11.4-16.0); Lymphocytes # (A) 2.1 k/uL (1.0-4.8); Lymphocytes % (A) 25 %; MCH 25.2 pg (25.0-35.0); MCV 78.8 fL (80.0-100.0); Mean Platelet Volume 7.8; Microcytosis Moderate; Monocytes # (A) 0.3 k/uL (0-1.0); Monocytes % (A) 4 %; Neutrophils # (A) 5.7 k/uL (1.3-7.7); Neutrophils % (A) 68 %; Platelet Count 253 k/uL (150-450); RBC 4.67 m/uL (3.80-5.40); RDW 21.3 % (11.5-15.5); WBC 8.4 k/uL (3.8-10.6)
[2023-03-01 07:43] LABS: INR 0.9 (<1.2)
[2023-03-01 07:44] LABS: Prothrombin Time 9.8 sec (9.0-12.0)
[2023-03-01] MEDS ORDERED: fentaNYL (PF) 50 MCG/ML 5 ML AMP ONE (15:30)
[2023-03-01] MEDS ORDERED: SODIUM CHLORIDE 0.9% 100 ML BAG ONE (15:30)
[2023-03-01] MEDS ORDERED: ROPIVACAINE 5 MG/ML 20 ML AMPULE ONE (15:30)
[2023-03-01] MEDS ORDERED: diphenhydrAMINE 25 MG CAP PO PRN (16:29)
[2023-03-01] MEDS ORDERED: HYDROCORTISONE 2.5% RECTAL CREAM 30 GM TUBE RECTAL PRN (16:29)
[2023-03-01] MEDS ORDERED: ACETAMINOPHEN TAB 325 MG TAB PO PRN (16:29)
[2023-03-01] MEDS ORDERED: ZOLPIDEM 5 MG TAB PO PRN (16:29)
[2023-03-01] MEDS ORDERED: diphenhydrAMINE 50 MG CAP PO PRN (16:29)
[2023-03-01] MEDS ORDERED: SIMETHICONE 80 MG CHEWABLE PO PRN (16:29)
[2023-03-01] MEDS ORDERED: diphenhydrAMINE 50 MG/ML 1 ML VIAL IVP PRN ×2 (16:29)
[2023-03-01] MEDS ORDERED: LANOLIN CREAM 5 GM TUBE TOPICAL PRN (16:29)
[2023-03-01] MEDS ORDERED: BENZOCAINE/MENTHOL SPRAY 1 GM/SPRAY AEROSOL TOPICAL PRN (16:29)
[2023-03-01] MEDS ORDERED: IBUPROFEN 600 MG TAB PO SCH (16:30)
--- NOTE | 2023-03-01 16:34 | P.PROBDLV ---
Vaginal Delivery Note - . Vaginal Delivery Note: This is a 33-year-old at 38-3/7 weeks that presented to labor and delivery today for induction of labor secondary to history of extended latent labor, history of prothrombin gene mutation on Lovenox daily. Patient has been jakob for almost one week now and has been in and out of triage. Given her Lovenox dose and prothrombin gene mutation recommendation for induction of labor. Patient was admitted to labor and delivery and induction of labor was begun with Pitocin. Amniotomy was performed and copious clear fluid was noted. Patient did have category 2 heart tones initially therefore Pitocin was discontinued position changes were instituted and reassuring heart tones were appreciated. Pitocin was restarted at 2 milliunits good contractions were appreciated and cervical change was noted. Patient did become uncomfortable when she was 6 cm and requested epidural. Epidural was placed without difficulty by the anesthesia department. Soon after the epidural was placed patient was noted to be 9+ centimeters. Patient noted increased pressure was checked and complete dilation was appreciated. Patient began pushing. bradycardia was noted with heart tones in the 60s to 70s. Therefore a vacuum was placed with got good confirmation of placement with subsequent contraction was delivered with 1 pull of the vacuum. Placement and suction was doubly checked. Once the head was delivered suction was rele ased the anterior then posterior shoulder was delivered without difficulty and the was handed on to the maternal abdomen. A spontaneous cry was appreciated. The umbilical cord was doubly clamped and cut. The infant was taken to the warmer for evaluation by nursery RN. The placenta was then delivered spontaneously intact with three-vessel cord being noted. The uterus is noted be firm and below the umbilicus at this time. Estimated blood loss 200 mL. On inspection the patient's vaginal vault a first-degree vaginal laceration was appreciated. This was repaired in the usual fashion with 3-0 Rapide. Bilateral labial lacerations were appreciated these were hemostatic and no repair was needed. All counts were noted to be correct 2 at the end of the delivery. Patient and tolerated delivery well and are resting comfortably.
--- NOTE | 2023-03-01 16:35 | P.HPOB ---
History of Present Illness H&P Date: 03/01/23 Chief Complaint: IUP @ 38 3/7 weeks, prothrombin gene mutation This is a 33 yo at 38 3/7 weeks that presents for induction of labor. She is currently on lovenox for prothrombin gene mutation and last dose was 48 hours ago. she has been jakob for the last week and was seen in triage last week as well. She has been receiving routine care has been essentially uncomplicated. Given patient's Lovenox dose and continued contractions recommendation for induction of labor. she is noting good movement, contractions as they have been for the last few weeks, no loss of fluid or vaginal bleeding. On bloodwork this patient is a blood type of B+, rubella status immune, B surface antigen negative, HIV negative, RPR is nonreactive, group beta strep culture negative. Review of Systems Constitutional: Denies chills, Denies fatigue, Denies fever Ears, nose, mouth and throat: Denies headache Cardiovascular: Denies leg edema Respiratory: Denies dyspnea Gastrointestinal: Denies constipation, Denies diarrhea, Denies nausea, Denies vomiting Genitourinary: Reports Past Medical History Past Medical History: No Reported History Additional Past Medical History / Comment(s): right hand deformity since , atopic dermatitis. BLOOD CLOTTING DISORDER History of Any Multi-Drug Resistant Organisms: MRSA Date of last positivie culture/infection: 01/20/20 MDRO Source:: genital MRSA Additional Past Surgical History / Comment(s): hand surgery Past Anesthesia/Blood Transfusion Reactions: No Reported Reaction Additional Past Anesthesia/Blood Transfusion Reaction / Comment(s): clausterphobia Past Psychological History: Depression Additional Psychological History / Comment(s): dyslexia Smoking Status: Never smoker Past Alcohol Use History: None Reported Past Drug Use History: None Reported - Past Family History Father Family Medical History: Cancer, Hypertension Additional Family Medical History / Comment(s): colon ca Mother Family Medical History: Hypertension, Osteoarthritis (OA) Medications and Allergies Home Medications Medication Instructions Recorded Confirmed Type Enoxaparin [Lovenox] 40 mg SQ DAILY 02/22/23 02/22/23 History Vit No.179/Iron/Folic 1 each PO 02/22/23 History [ Tablet] Allergies Allergy/AdvReac Type Severity Reaction Status Date / Time warfarin [From Coumadin] AdvReac DIZZINESS Verified 02/22/23 22:58 clorine AdvReac Unknown Uncoded 02/22/23 22:58 detergent AdvReac Unknown Uncoded 02/22/23 22:58 Exam Osteopathic Statement: *. No significant issues noted on an osteopathic structural exam other than those noted in the History and Physical/Consult. Vital Signs Temp Pulse Resp BP 03/01/23 06:18 96.6 F L 93 18 111/64 Intake and Output 02/28/23 03/01/23 03/01/23 22:59 06:59 14:59 Other: Weight 60.328 kg Targeted physical exam was done on this date in general this is a well nourished and well developed female in no acute distress Breathing is noted to be nonlabored, heart has regular rate and rhythm, abdomen is gravid, on cervical exam she is to 3/50/-3 station amniotomy is performed and copious clear fluid was obtained. heart tones are noted to be category 1 and she is jakob every 1-2 minutes. Results Result Diagrams: 03/01/23 06:40 Abnormal Lab Results - Last 24 Hours (Table) 03/01/23 Range/Units 06:40 MCV 78.8 L (80.0-100.0) fL RDW 21.3 H (11.5-15.5) % Assessment and Plan (1) Prolonged latent phase of labor Current Visit: Yes Status: Acute Code(s): O63.0 - PROLONGED FIRST STAGE (OF LABOR) SNOMED Code(s): 436362022 (2) Prothrombin gene mutation Current Visit: No Status: Acute Code(s): D68.52 - PROTHROMBIN GENE MUTATION SNOMED Code(s): 12433871 (3) Term Current Visit: No Status: Acute Code(s): Z34.80 - ENCOUNTER FOR SUPRVSN OF NORMAL , UNSP TRIMESTER SNOMED Code(s): 30604536 Plan: 33-year-old at 38-3/7 weeks that presents for induction of labor. Patient has been jakob for multiple days and has known prothrombin gene mutation and is on Lovenox. Given patient's Lovenox use and continued contractions discussed induction of labor. Patient was agreeable to induction of labor. Pitocin induction of labor was begun per hospital protocol. Options for analg esia are discussed including nitrous an epidural. Anesthesia is notified about Lovenox use and last dose. Anticipate spontaneous vaginal delivery later today.
[2023-03-01] MEDS: SENNOSIDES-DOCUSATE SODIUM 1 EACH TAB PO SCH (21:51)
[2023-03-01] MEDS ORDERED: IBUPROFEN 600 MG TAB PO PRN (21:55)
[2023-03-02] MEDS: SENNOSIDES-DOCUSATE SODIUM 1 EACH TAB PO SCH (08:00)
--- NOTE | 2023-03-02 08:53 | P.PNOBGVD ---
Subjective - Subjective Principal diagnosis: day #1 status post vacuum-assisted vaginal delivery Interval history: Patient is doing well this morning. She is ambulatory and voiding without difficulty. She states her lochia is moderate. She is breast-feeding without difficulty. She states her pain is well-controlled. She is tolerating a regular diet without nausea or vomiting. Patient reports: Reports appetite normal, Reports voiding normally, Reports pain well controlled, Reports ambulating normally [place]: doing well, nursing well Objective - Latest Vital Signs Latest vital signs: Vital Signs Temp Pulse Resp BP Pulse Ox 03/02/23 04:00 98.4 F 81 14 104/71 99 03/02/23 00:30 98.5 F 82 12 110/67 98 03/01/23 20:05 98.7 F 88 18 98/64 98 03/01/23 18:20 97.4 F L 71 16 109/67 03/01/23 17:50 70 16 109/69 03/01/23 17:20 70 16 113/72 03/01/23 17:05 90 16 114/72 03/01/23 16:50 86 16 104/62 03/01/23 16:35 85 16 99/63 03/01/23 16:20 83 16 100/57 Intake and Output 03/01/23 03/02/23 03/02/23 22:59 06:59 14:59 Intake Total 186.3 Output Total 421 Balance -234.7 Intake: Intake, IV Titration 186.3 Amount Oxytocin 30 Units/500 ml 186.3 Ns 30 unit In Saline 1 500ml.bag @ Per Protocol IV .Q0M [facility] Rx#:[id number] Output: Output, Quantitative 421 Blood Loss Other: # Voids 1 2 - Exam Extremities: Present: normal, edema Abdomen: Present: normal appearance, soft Uterus: Present: normal, firm Assessment and Plan (1) Prolonged latent phase of labor Current Visit: Yes Status: Acute Code(s): O63.0 - PROLONGED FIRST STAGE (OF LABOR) SNOMED Code(s): 690779074 (2) Prothrombin gene mutation Current Visit: No Status: Acute Code(s): D68.52 - PROTHROMBIN GENE MUTATION SNOMED Code(s): 98433172 (3) Term Current Visit: No Status: Acute Code(s): Z34.80 - ENCOUNTER FOR SUPRVSN OF NORMAL , UNSP TRIMESTER SNOMED Code(s): 09092611 (4) Status post vacuum-assisted vaginal delivery Current Visit: Yes Status: Acute Code(s): Z87.59 - PERSONAL HISTORY OF COMP OF PREG, CHLDBRTH AND THE PUERP SNOMED Code(s): 599281206 Plan: 33-year-old G2 now P2 status post vacuum assist vaginal delivery. Patient is doing well . Does require circumcision. We will work on breast- feeding this a.m. and consider circumcision around noon. Patient desires discharge at 24 hours if possible.
[2023-03-02 12:40] VITALS: PULSE 80
--- NOTE | 2023-03-02 15:47 | P.DS ---
Providers Date of admission: 03/01/23 06:00 Expected date of discharge: 03/02/23 Attending physician: Noemi Holbrook Primary care physician: Satnam Moreno - Discharge Diagnosis(es) (1) Prolonged latent phase of labor Current Visit: Yes Status: Acute (2) Prothrombin gene mutation Current Visit: No Status: Acute (3) Term Current Visit: No Status: Acute (4) Status post vacuum-assisted vaginal delivery Current Visit: Yes Status: Acute Hospital Course: This is a 33-year-old G2 now P2 status post vacuum assist vaginal delivery. Patient was admitted yesterday for induction of labor secondary to prolonged latent labor and known prothrombin gene mutation on Lovenox. Patient had been jakob and an out of triage with complaints of painful contractions. Patient was admitted to labor and delivery and Pitocin induction of labor was begun. Amniotomy was performed and clear fluid was obtained. Patient progressed to labor eventually becoming uncomfortable and requesting epidural placement soon after epidural was placed patient was noted to be completely dilated and she began pushing. Patient had a vaccum assist vaginal delivery of a viable male at 1619, weight of 8 lbs. 3 oz. Patient did sustain a first-degree vaginal laceration during delivery. This was repaired in usual fashion with 3-0 Rapide. Patient has done well . She is ambulating and voiding without difficulty. She is tolerating a regular diet without nausea or vomiting. She states her lochia is moderate. She would like discharge home at 24 hours if possible. Patient Condition at Discharge: Good Plan - Discharge Summary New Discharge Prescriptions: No Action Enoxaparin [Lovenox] 40 mg SQ DAILY Vit No.179/Iron/Folic [ Tablet] 1 each PO Discharge Medication List Enoxaparin [Lovenox] 40 mg SQ DAILY 02/22/23 [History] Vit No.179/Iron/Folic [ Tablet] 1 each PO 02/22/23 [History] Follow up Appointment(s)/Referral(s): Noemi Holbrook DO [Doctor of Osteopathic Medicine] - 4 Weeks Patient Instructions/Handouts: Vaginal Delivery (GEN), Vaginal Delivery (DC) Activity/Diet/Wound Care/Special Instructions: No tub baths or intercourse until 6 weeks . Patient can expect moderate lochia. Patient is call the office to make a routine 4 weeks post appointment. Should she have any concerns prior to this appointment she is urged to call the office. Discharge Disposition: HOME SELF-CARE
[2023-03-02 17:05] VITALS: BP 114/66; RESP 18; TEMP 98.6
== END 2023-03-02 17:55 | disposition home or self-care (01) | DRG 806 ==
LOC: 4FBP 06:00
PROVIDERS: ADMIT Obstetrics & Gynecology Obstetrics; ATTEND Obstetrics & Gynecology Obstetrics
PROC: 10E0XZZ Delivery of Products of Conception, External Approach (ICD-10-PCS; principal; 2023-03-01)
PROC: 0HQ9XZZ Repair Perineum Skin, External Approach (ICD-10-PCS; principal; 2023-03-01)
PROC: 3E033VJ Introduction of Other Hormone into Peripheral Vein, Percutaneous Approach (ICD-10-PCS; 2023-03-01)
PROC: 10907ZC Drainage of Amniotic Fluid, Therapeutic from Products of Conception, Via Natural or Artificial Opening (ICD-10-PCS; 2023-03-01)
PROC: 3E0DXGC Introduction of Other Therapeutic Substance into Mouth and Pharynx, External Approach (ICD-10-PCS; 2023-03-01)
DX: O63.0 Prolonged first stage (of labor) (principal); D68.52 Prothrombin gene mutation; Z37.0 Single live birth; O99.12 Other diseases of the blood and blood-forming organs and certain disorders involving the immune mechanism complicating childbirth; Z3A.38 38 weeks gestation of pregnancy; O70.0 First degree perineal laceration during delivery; Z28.310 Unvaccinated for COVID-19; O76 Abnormality in fetal heart rate and rhythm complicating labor and delivery; L20.9 Atopic dermatitis, unspecified; R48.0 Dyslexia and alexia; Z86.14 Personal history of Methicillin resistant Staphylococcus aureus infection; Z79.01 Long term (current) use of anticoagulants; Z82.49 Family history of ischemic heart disease and other diseases of the circulatory system
CPT/HCPCS: 85025; 85610; 85730; 86850; 86900; 86901